=== PATIENT | female | born 1955 | race Caucasian/White ===

== ENCOUNTER → 2017-04-10 | Outpatient (CLI) | payer BC ==
--- NOTE | 2017-04-10 18:54 | Diagnostic Imaging Report ---
Bilateral screening mammogram 2D views with tomosynthesis. The current study was also evaluated with a Computer Aided Detection (CAD) system. INDICATION: Screening. No current complaints stated on the questionnaire. COMPARISON: 04/10/16. FINDINGS: The breasts are composed of scattered fibroglandular densities. Occasional punctate calcifications are seen. Allowing for technique and positional differences, no suspicious change is seen. IMPRESSION: No significant change. ACR BI-RADS Category 2: Benign findings. Result letter will be mailed to the patient. Note: At least 10% of breast cancer is not imaged by mammography. Dictated by: Dictated on workstation # [id number]
== END ==
LOC: RAD 07:44
PROVIDERS: ATTEND Family Medicine
DX: Z12.31 Encounter for screening mammogram for malignant neoplasm of breast (principal)
CPT/HCPCS: 77067

== ENCOUNTER → 2018-04-11 | Outpatient (CLI) | payer BC ==
--- NOTE | 2018-04-11 18:19 | Diagnostic Imaging Report ---
INDICATION: Screening. At this time there are no current complaints. EXAMINATION: Bilateral digital screening mammogram with CAD. 3D tomographic images were obtained and reviewed. The current study was also evaluated with a Computer Aided Detection (CAD) system. COMPARISON: This study was compared to the prior exams of 04/10/2017, 04/10/2016 and 12/09/13. FINDINGS: There are scattered fibroglandular densities in both breasts which could obscure a lesion. Overall, there does not appear to have been any significant change when compared to the prior exam. No primary or secondary sign of malignancy is noted. IMPRESSION: There is no radiographic evidence for malignancy. ACR BI-RADS Category 1: Negative. Result letter will be mailed to the patient. Note: At least 10% of breast cancer is not imaged by mammography. Dictated by: Dictated on workstation # [id number]
== END ==
LOC: RAD 07:19
PROVIDERS: ATTEND Family Medicine
DX: Z12.31 Encounter for screening mammogram for malignant neoplasm of breast (principal)
CPT/HCPCS: 77067

== ENCOUNTER 2018-08-19 13:59 | Outpatient (CLI) | payer BC ==
[~2018-08-19] VITALS: Ht 157.5 cm; Wt 91.6 kg
== END 2018-08-19 14:09 | disposition home or self-care (01) ==
LOC: PREOP 13:59
PROVIDERS: ATTEND Surgery
DX: Z01.818 Encounter for other preprocedural examination (principal)

== ENCOUNTER 2018-08-21 09:11 | Day surgery (SDC) | payer BC ==
[~2018-08-21] VITALS: Ht 157.5 cm; Wt 91.6 kg
[~2018-08-21 09:11] MED LIST: CALC600T12 PO; FERR160T5 PO; GLUC1CAP14 PO; MULT1TAB69 PO; OMEG100032 PO
--- OUTSIDE RECORDS SUMMARY | 2018-08-21 09:15 | XMS REPORT | Continuity of Care Document ---
Author Author [facility] Organization [facility] Address Unknown Phone Unavailable Allergies Active Description Code Type Severity Reaction Onset Reported/Identified Relationship to Patient Clinical Status Yes No Known Drug Allergies [id number] Drug Allergy Unknown N/A 08/19/2018 Medications There is no data. Problems Date Dx Coded Attending Type Code Diagnosis Diagnosed By 04/12/2016 DORIAN PATRICIA DO Ot Z12.31 ENCNTR SCREEN MAMMOGRAM FOR MALIGNANT NE 04/20/2016 DORIAN PATRICIA DO Ot Z12.31 ENCNTR SCREEN MAMMOGRAM FOR MALIGNANT NE 04/18/2017 DORIAN PATRICIA DO Ot Z12.31 ENCNTR SCREEN MAMMOGRAM FOR MALIGNANT NE 08/15/2018 KITA BHATTI MD Ot Z01.818 ENCOUNTER FOR OTHER PREPROCEDURAL EXAMIN 08/19/2018 KITA BHATTI MD Ot Z01.818 ENCOUNTER FOR OTHER PREPROCEDURAL EXAMIN Procedures There is no data. Results There is no data. Encounters ACCT No. Visit Date/Time Discharge Status Pt. Type Provider Facility Loc./Unit Complaint [id number] 08/19/2018 13:59:00 08/19/2018 14:09:00 DIS Outpatient KITA BHATTI MD [facility] PREOP COLONOSCOPY [id number] 04/11/2018 07:19:00 04/11/2018 23:59:59 CLS Outpatient DORIAN PATRICIA DO S [facility] RAD SCREENING [id number] 04/10/2017 07:44:00 04/10/2017 23:59:59 CLS Outpatient FABRICIO PATRICIA DOQUELINE S [facility] RAD SCREENING Z12.31 [id number] 04/10/2016 10:06:00 04/10/2016 23:59:59 CLS Outpatient FABRICIO PATRICIA DOQUELINE S [facility] RAD SCREENING [id number] 12/09/2013 08:45:00 12/09/2013 23:59:59 CLS Outpatient [id number] 12/04/2012 07:16:00 12/04/2012 23:59:59 CLS Outpatient [id number] 08/21/2018 09:30:00 PEN Preadmit KITA BHATTI MD [facility] ENDO SCREENING 03/14/19 06/16/2018 06:17:34 06/16/2018 23:59:59 CLS Outpatient Dorian Patricia
[2018-08-21] MEDS ORDERED: NS IV 500 ML 500 ML ONE ×2 (09:17→10:03)
--- NOTE | 2018-08-21 09:21 | Conscious Sedation/ASA ---
Conscious Sedation Pre-Proced Time 09:15 ASA Score 2 For ASA 3 and 4: Consider anesthesia and medical clearance. Also, for patients with a history of failed moderate sedation consider anesthesia. Airway Lungs Heart ASA score ASA 1: a normal healthy patient ASA 2: a patient with a mild systemic disease (mid diabetes, controlled hypertension, obesity ASA 3: a patient with a severe systemic disease that limits activity (angina , COPD, prior Myocardial infarction) ASA 4: a patient with an incapacitating disease that is a constant threat to life (CHF, renal failure) ASA 5: a moribund patient not expected to survive 24 hrs. (ruptured aneurysm) ASA 6: a declared brain- patient whose organs are being harvested. For emergent operations, add the letter E after the classification Mallampati Classification Grade 2 Sedation Plan Analgesia, Amnesia, Plan communicated to team members, Discussed options with patient/fam, Discussed risks with patient/fam The patient is an appropriate candidate to undergo the planned procedure, sedation, and anesthesia. The patient immediately re-assessed prior to indication. KITA BHATTI MD Aug 21, 2018 09:21
--- NOTE | 2018-08-21 09:22 | Progress Note-Pre Operative ---
Pre-Operative Progress Note H&P Reviewed The H&P was reviewed, patient examined and no changes noted. Date Seen by Provider: Aug 21, 2018 Time Seen by Provider: 09:15 Date H&P Reviewed: Aug 21, 2018 Time H&P Reviewed: 09:15 Pre-Operative Diagnosis: screening colonoscopy KITA BHATTI MD Aug 21, 2018 09:22
--- NOTE | 2018-08-21 09:25 | Discharge Inst-Surgical ---
D/C Lap Instructions-MAGY Follow Up 10yrs Activity as tolerated High Fiber Diet 25g or more per day Avoid Alcohol, Caffeine, Spicy [place]ancy [place] and Acid foods. Drink 64 fluid oz or more of fluids per day. Symptoms to Report: Fever over 101 degree F, Nausea/Vomiting If any problems/questions: Contact your physician or go to Emergency Room KITA BHATTI MD Aug 21, 2018 09:25
[2018-08-21] MEDS: NS IV 500 ML 500 ML IV PRN ×2 (09:30→10:05)
[2018-08-21] MEDS ORDERED: ONDANSETRON 4 MG/2 ML (SDV) Z0FRAN IV PRN (09:30)
[2018-08-21] MEDS ORDERED: ACETAMINOPHEN 325 MG TABLET PO PRN (09:30)
[2018-08-21] MEDS ORDERED: morphine INJ 10 MG/ML 1ML (SYR OR VIAL) IV PRN (09:30)
[2018-08-21] MEDS ORDERED: HYDROcodone/APAP 5 MG/325 MG (LORTAB) TAB PO PRN (09:30)
[2018-08-21 09:45] VITALS: BP 139/83
[2018-08-21] MEDS ORDERED: fentaNYL INJECTION 100 MCG/2 ML AMP IVP ONE (09:45)
[2018-08-21] MEDS ORDERED: LIDOCAINE JELLY 2% 6 ML SYRINGE MM PRN (09:45)
[2018-08-21] MEDS ORDERED: MIDAZOLAM 2 MG/2 ML (VERSED) VIAL IVP ONE (09:45)
[2018-08-21] MEDS ORDERED: MIDAZOLAM 2 MG/2 ML (VERSED) VIAL ONE ×5 (09:52→10:41)
[2018-08-21] MEDS ORDERED: LIDOCAINE JELLY 2% 6 ML SYRINGE ONE (09:53)
[2018-08-21] MEDS ORDERED: fentaNYL INJECTION 100 MCG/2 ML AMP ONE (09:53)
--- NOTE | 2018-08-21 11:15 | Progress Note-Post Operative ---
Post-Operative Progess Note Surgeon (s)/Traffic Observer (s) Surgeon KITA BHATTI MD Traffic Observer: none Pre-Operative Diagnosis screening colonoscopy Post-Operative Diagnosis mild chronic ext and int hemorroids, mild sigmoid diverticulosis. Procedure & Operative Findings Date of Procedure 08/21/18 Procedure Performed/Findings Colonoscopy. Anesthesia Type cs Estimated Blood Loss Estimated blood loss (mL): none Specimens/Packing Specimens Removed none KITA BHATTI MD Aug 21, 2018 11:15
[2018-08-21 11:20] VITALS: BP 131/84
[2018-08-21 11:50] VITALS: BP 133/72
[2018-08-21 12:05] VITALS: BP 133/72
--- NOTE | 2018-08-21 14:34 | OPERATIVE REPORT ---
DATE OF SERVICE: 08/21/2018 ATTENDING PRIMARY CARE PHYSICIAN: Dr. Patricia. PREOPERATIVE DIAGNOSIS: Screening colonoscopy. POSTOPERATIVE DIAGNOSES: Mild chronic stage II external and internal hemorrhoids, mild or early sigmoid diverticulosis. Remainder of the colon was normal. PROCEDURE: Colonoscopy. SURGEON: Kita Bhatti MD. ANESTHESIA: Conscious sedation. ESTIMATED BLOOD LOSS: Minimal. FINDINGS: Mild chronic stage II external and internal hemorrhoids, mild or very early sigmoid diverticulosis. The remainder of the colon was normal. There were no polyps or any neoplasms identified. DISPOSITION: The patient tolerated the procedure well. INDICATIONS: The patient is a 63-year-old female in need of a screening colonoscopy. She did have a colonoscopy 10 years ago and was found to have mild chronic external and internal hemorrhoids. However, the remainder of the rectum and colon were normal. She states, for the most part, she is doing well, does not report any major issues with diarrhea nor constipation as well as no red blood per rectum nor any dark tarry stools. She also does not report any family history of colon cancer. DESCRIPTION OF PROCEDURE: The patient was brought to the endoscopy suite and laid in the left lateral decubitus position. After adequate IV pain and sedative medications and conscious sedation anesthesia, a digital rectal examination was performed. Mild chronic stage II external and internal hemorrhoids were identified, which were not actively edematous nor inflamed and no bleeding. Normal sphincter tone was felt and there were no palpable masses. The endoscope was then intubated into the anus and the rectum gently insufflated. The endoscope was then advanced to the valves of [place] in the rectum with no polyps or any neoplasms identified. We then proceeded to the sigmoid colon where a very few and small diverticula identified. There were no signs of redness or erythema to indicate any diverticulitis. The endoscope was then advanced to the remainder of the descending, transverse and ascending colon to the cecum. These segments were normal. There were no polyps or any neoplasms identified throughout the colon or rectum. The patient tolerated the procedure well. We will recommend a high-fiber diet with at least 25 to 30 grams of fiber per day as well as significant amounts of water to promote soft stools on a daily basis. She does not need another colonoscopy for another 10 years. Job ID: [id number] DocumentID: [id number] Dictated Date: 08/21/2018 11:07:08 Curbstone Setter Date: 08/21/2018 14:33:55 Dictated By: KITA BHATTI MD
== END 2018-08-21 12:05 | disposition home or self-care (01) ==
LOC: ENDO 09:11
PROVIDERS: ATTEND Surgery
DX: Z12.11 Encounter for screening for malignant neoplasm of colon (principal); K57.30 Diverticulosis of large intestine without perforation or abscess without bleeding; K64.1 Second degree hemorrhoids

== ENCOUNTER → 2019-04-15 | Outpatient (CLI) | payer BC ==
--- NOTE | 2019-04-15 12:51 | Diagnostic Imaging Report ---
INDICATION: Routine screening. COMPARISON: Comparison is made with prior mammograms from 04/11/2018 and 04/10/2017. TECHNIQUE: 2-D and 3-D bilateral screening mammography was performed. The current study was also evaluated with a Computer Aided Detection (CAD) system. 3-D tomosynthesis was also performed and reviewed. FINDINGS: Scattered fibroglandular densities are identified bilaterally. The parenchymal pattern is stable. No mass or malignant-appearing microcalcifications are seen. The axillae are unremarkable. IMPRESSION: No mammographic features suspicious for malignancy are identified. ACR BI-RADS Category 1: Negative. Result letter will be mailed to the patient. Note: At least 10% of breast cancer is not imaged by mammography. Dictated by: Dictated on workstation # [id number]
== END ==
LOC: RAD 07:31
PROVIDERS: ATTEND Family Medicine
DX: Z12.31 Encounter for screening mammogram for malignant neoplasm of breast (principal)
CPT/HCPCS: 77067

== ENCOUNTER → 2020-04-19 | Outpatient (CLI) | payer BC ==
[~2020-04-19] MED LIST changes: -CALC600T12 PO; +CLC600T PO; +MULT-567 PO; -MULT1TAB69 PO
--- NOTE | 2020-04-19 11:21 | Diagnostic Imaging Report ---
EXAMINATION: Digital mammogram bilateral screening with CAD. INDICATION: Screening. COMPARISON: This study was compared to the prior exams of 04/15/2019, 04/11/2018, and 04/10/2017. PERSONAL HISTORY: At this time, there are no current complaints. FINDINGS: There are scattered fibroglandular densities in both breasts which could obscure a lesion. Overall, there does not appear to have been any significant change when compared to the prior exam. No primary or secondary sign of malignancy is noted. IMPRESSION: There is no radiographic evidence for malignancy. ACR BI-RADS Category 1: Negative. Result letter will be mailed to the patient. Note: At least 10% of breast cancer is not imaged by mammography. Dictated by: Dictated on workstation # [id number]
== END ==
LOC: RAD 07:45
PROVIDERS: ATTEND Nurse Practitioner Family
DX: Z12.31 Encounter for screening mammogram for malignant neoplasm of breast (principal)
CPT/HCPCS: 77063; 77067

== ENCOUNTER → 2020-05-13 | Outpatient (CLI) | payer BC | LOC: CARD 14:30 | PROVIDERS: ATTEND Family Medicine | DX: I08.1 Rheumatic disorders of both mitral and tricuspid valves (principal) | CPT/HCPCS: 93306 ==

== ENCOUNTER → 2020-06-28 | Outpatient (CLI) | payer BC ==
[~2020-06-28] VITALS: Ht 157 cm; Wt 93.0 kg
[~2020-06-28] MED LIST changes: +CATHETER FLUSH 10 ML SYR IV PRN; +REGADENOSON 0.4 MG/5 ML SYR (LEXISCAN) IV ONE
[2020-06-28 09:30] VITALS: BP 165/88
--- NOTE | 2020-06-28 14:36 | Cardiology Stress Test Report ---
Stress Test Report Date of Procedure/Referring: Date of Procedure: Jun 28, 2020 PCP Hiral Calvert MD Admitting Physician Deepa Patricia DO Baseline Blood Pressure: Blood Pressure Systolic: 165 Blood Pressure Diastolic: 88 Baseline Vitals Vital Signs Date Time Temp Pulse Resp B/P (MAP) Pulse Ox O2 Delivery O2 Flow Rate FiO2 06/28/20 09:30 64 165/88 (113) 98 Summary After explaining the procedure to the patient, she signed a consent and then brought to the stress nuclear laboratory. Patient received 0.4 mg Lexiscan for stress test, ECG, heart rate and blood pressure were monitored continuously. Resting and stress dose of radio tracer were injected, imaging was acquired and reviewed in short axis, horizontal long axis and vertical long axis views. TID: 0.91 SSS: 8 SDS: 7 EF: 61 Patient tolerated test well Breast attenuation with mild reversible ischemia involving the mid to apical anterior wall Normal LV size, EF 61% HIRAL CALVERT MD Jun 28, 2020 14:36
== END ==
LOC: CARD 08:00
PROVIDERS: ATTEND Internal Medicine Cardiovascular Disease
DX: R06.00 Dyspnea, unspecified (principal)
CPT/HCPCS: 78452; 93017; A9502

== ENCOUNTER → 2020-07-12 | Outpatient (CLI) | payer BC ==
[~2020-07-12] MED LIST changes: -CATHETER FLUSH 10 ML SYR IV PRN; -REGADENOSON 0.4 MG/5 ML SYR (LEXISCAN) IV ONE
== END ==
LOC: LABNPT 07:11
PROVIDERS: ATTEND Internal Medicine Cardiovascular Disease
DX: Z01.89 Encounter for other specified special examinations (principal); Z20.822 Contact with and (suspected) exposure to COVID-19
CPT/HCPCS: 87635

== ENCOUNTER 2020-07-14 10:30 | Day surgery (SDC) | payer BC ==
[~2020-07-14] VITALS: Ht 157 cm; Wt 93.0 kg
[2020-07-14] VITALS (16 sets, daily range): BP systolic 109–185; BP diastolic 61–100
[2020-07-14 07:25] LABS: BILIRUBIN,URINE NEGATIVE (NEGATIVE); CLARITY,URINE CLEAR; COLOR,URINE YELLOW; GLUCOSE, URINE (UA) NEGATIVE (NEGATIVE); KETONES,URINE NEGATIVE (NEGATIVE); LEUKOCYTE ESTERASE ,URINE NEGATIVE (NEGATIVE); NITRITE,URINE NEGATIVE (NEGATIVE); PROTEIN,URINE NEGATIVE (NEGATIVE)
[2020-07-14 07:27] LABS: HEMOGLOBIN 13.2 g/dL (11.5-16.0); MEAN PLATELET VOLUME 10.1 fL (9.0-12.2); WHITE BLOOD COUNT 9.4 10^3/uL (4.3-11.0)
[2020-07-14 07:32] LABS: BACTERIA,URINE TRACE /HPF
[2020-07-14 07:35] LABS: PROTHROMBIN TIME PATIENT 13.3 SEC (12.2-14.7)
[2020-07-14 07:44] LABS: ALANINE AMINOTRANSFERASE 27 U/L (0-55); ALBUMIN 4.1 GM/DL (3.2-4.5); ALKALINE PHOSPHATASE 89 U/L (40-136); BILIRUBIN,TOTAL 0.5 MG/DL (0.1-1.0); BUN/CREATININE RATIO 14; CARBON DIOXIDE 26 MMOL/L (21-32); CHLORIDE 105 MMOL/L (98-107); CHOLESTEROL 172 MG/DL (< 200); CREATININE SERUM 0.77 MG/DL (0.60-1.30); GFR ESTIMATED > 60; GLUCOSE 110 MG/DL (70-105); HDL CHOLESTEROL 47 MG/DL (40-60); SODIUM 140 MMOL/L (135-145); TOTAL PROTEIN 8.5 GM/DL (6.4-8.2); TRIGLYCERIDES 170 MG/DL (<150); VLDL CHOLESTEROL 34 MG/DL (5-40)
--- NOTE | 2020-07-14 07:50 | Diagnostic Imaging Report ---
Indication: Short of breath. Hypertension. Preprocedural evaluation Upright portable chest shows cardiomegaly with normal vascularity. The lungs are clear. There is no effusion or pneumothorax. There is no bony abnormality. IMPRESSION: Cardiomegaly with no failure. Dictated by: Dictated on workstation # [id number]
--- NOTE | 2020-07-14 09:45 | Cardiac Procedure Note-CS/ASA ---
Pre-Procedure Note Pre-Op Procedure Note H&P Reviewed The H&P was reviewed, patient examined and no changes noted. Date H&P Reviewed: Jul 14, 2020 Time H&P Reviewed: 08:00 Conscious Sedation Pre-Proced Time 08:00 ASA Score 3 For ASA 3 and 4: Consider anesthesia and medical clearance. Also, for patients with a history of failed moderate sedation consider anesthesia. Airway Lungs Heart ASA score ASA 1: a normal healthy patient ASA 2: a patient with a mild systemic disease (mid diabetes, controlled hypertension, obesity x ASA 3: a patient with a severe systemic disease that limits activity (angina, COPD, prior Myocardial infarction) ASA 4: a patient with an incapacitating disease that is a constant threat to life (CHF, renal failure) ASA 5: a moribund patient not expected to survive 24 hrs. (ruptured aneurysm) ASA 6: a declared brain- patient whose organs are being harvested. For emergent operations, add the letter E after the classification Mallampati Classification Grade 3 Sedation Plan Analgesia, Amnesia, Plan communicated to team members, Discussed options with patient/fam, Discussed risks with patient/fam The patient is an appropriate candidate to undergo the planned procedure, sedation, and anesthesia. The patient immediately re-assessed prior to indication. HIRAL JACK MD Jul 14, 2020 09:45
--- NOTE | 2020-07-14 09:45 | Cardiac Procedure Note-CS/ASA ---
Pre-Procedure Note Pre-Op Procedure Note H&P Reviewed The H&P was reviewed, patient examined and no changes noted. Date H&P Reviewed: Jul 14, 2020 Time H&P Reviewed: 09:00 Conscious Sedation Pre-Proced Time 09:00 ASA Score 3 For ASA 3 and 4: Consider anesthesia and medical clearance. Also, for patients with a history of failed moderate sedation consider anesthesia. Airway Lungs Heart ASA score ASA 1: a normal healthy patient ASA 2: a patient with a mild systemic disease (mid diabetes, controlled hypertension, obesity x ASA 3: a patient with a severe systemic disease that limits activity (angina, COPD, prior Myocardial infarction) ASA 4: a patient with an incapacitating disease that is a constant threat to life (CHF, renal failure) ASA 5: a moribund patient not expected to survive 24 hrs. (ruptured aneurysm) ASA 6: a declared brain- patient whose organs are being harvested. For emergent operations, add the letter E after the classification Mallampati Classification Grade 3 Sedation Plan Analgesia, Amnesia, Plan communicated to team members, Discussed options with patient/fam, Discussed risks with patient/fam The patient is an appropriate candidate to undergo the planned procedure, sedation, and anesthesia. The patient immediately re-assessed prior to indication. HIRAL JACK MD Jul 14, 2020 09:45
--- NOTE | 2020-07-14 09:47 | Discharge Inst-Post CATH ---
Discharge Inst-CATH/EP Problems Reviewed?: Yes Post Cardiac Cath/EP D/C Inst Follow Up/Plan Appointment with Dr. Calvert's office in 4 weeks <b>CARDIAC CATH/EP PROCEDURE DISCHARGE INSTRUCTIONS</b> ACTIVITY * Go Home directly and rest. * Limit activity of the leg (or wrist if it was used) for 7 days including aerobics, swimming, jogging, bicycling, etc. * Restrict stair-climbing for 7 days if possible, if not, climb up with your non-cath leg, then bring together on the same step. * Avoid lifting, pushing, pulling or excessive movement of the affected extremity for 7 days. * Customary sexual activity may be resumed after 2 days-use caution not to use a position that strains or causes pain to the affected extremity. * No driving for 24 hours. * NO SMOKING. * Avoid straining for bowel movements for 7 days. * Gentle walking on level ground is allowed. * Returning to work will depend on the type of procedure and the results. Your doctor will discuss this with you. CALL YOUR DOCTOR FOR ANY OF THE FOLLOWING: *If bleeding from the puncture site occurs- Apply gentle pressure to site with clean cloth and call your doctor or EMS. * If a knot or lump forms under the skin, increases in size, or causes pain. * If bruising appears to be worsening or moving further down your leg instead of disappearing. * Temperature above 101 F. CARE OF YOUR GROIN INCISION; * Bruising or purple discoloration of the skin near the puncture site is common. * You may shower only, no bathtub bathing for 5 days. Be careful to avoid slipping as your leg may feel stiff. * If a closure device was used on your femoral artery, please see the attached guide regarding care of the device and your leg. * Leave dressing on FOR 24 hours. CARE OF YOUR WRIST INCISION; * Bruising or purple discoloration of the skin near the puncture site is common. * You may shower. * DO NOT submerge wrist. * Leave dressing on FOR 24 hours. HIRAL CALVERT MD Jul 14, 2020 09:46
--- NOTE | 2020-07-14 09:51 | Cardiac Cath Report ---
Cardiac Cath Report Physician (s)/Personal Care Worker (s) Physician HIRAL JACK MD Pre-Procedure Diagnosis Pre-Procedure Diagnosis: severe mitral regurgitation Post-Procedure Note Procedure Start Date: Jul 14, 2020 Name of Procedure: Left heart catheterization Left ventriculogram Aortic arch angiogram Findings/Procedure Note PROCEDURE NOTE: 65-year-old lady with severe mitral regurgitation, pulmonary hypertension, underwent MERLIN earlier today and scheduled for cardiac catheterization prior to referring her for valve repair procedure. After explaining the procedure to the patient, all pros and cons were explained, all questions were answered. The patient signed the consent and then she was placed on the cardiac catheterization laboratory. Groin was prepped SL fashion local anesthesia was used. Sheath placed in the right radial artery, [place] catheter was used advanced to the left ventricular cavity and left ventriculogram was done then pulled back to the left main coronary system and angiogram was done turned to the right coronary system and angiogram was done then it was pulled back to the aortic arch and evaluate aortic arch angiogram prior to referring the patient for valvular surgery At the end of the procedure the sheath was removed. Vascular band was used FINDINGS: Hemodynamics LV 101/1, end-diastolic pressure of 1 Aorta 112/65 mean of 85 ANATOMY: Left Main is free of obstructive disease Left Anterior Descending is free of obstructive disease Left Circumflex is moderate in size, free of obstructive disease Right Coronory Artery is free of obstructive disease LV Gram was done showing normal left ventricular size, ejection fraction 50-60 percent, +3 mitral regurgitation Aorta evaluation done with aortic arch angiogram showing normal aortic arch, no dissection or aneurysm, normal origin of the innominate artery, left carotid artery and left subclavian artery CONCLUSION: 1. Normal coronary system 2. Normal left ventricular size and systolic function, EF 50-60 percent 3. Normal aortic arch and great vessels of the neck 4. +3 mitral regurgitation, patient had a MERLIN showing severe mitral regurgitation with eccentric jet and flow reversal in the pulmonic veins DISCUSSION AND RECOMMENDATION: Patient will be referred for evaluation for mitral valve repair Anesthesia Type: Conscious Sedation Estimated blood loss (mL): 10 ml Contrast Amount: 48 ml Total Radiation Dose: 405 mGy Post-Procedure Diagnosis Post-operative diagnosis: Severe mitral regurgitation Hypertension Pulmonary hypertension Shortness of breath HIRAL JACK MD Jul 14, 2020 09:51
[~2020-07-14 10:30] MED LIST changes: +HEParin (CATH LAB) 2,000 ML IV ONE; +HEParin 1000 UNIT/ML (10ML VIAL) FOR BOLUS ONE; +LIDOCAINE 1% INJ 20 ML 20 ML VIAL ONE; +LIDOCAINE 2% VISCOUS 15 ML UDC ONE; +MIDAZOLAM 5 MG/5 ML (VERSED) VIAL ONE; +NITRO DRIP 25000 MCG/D5W 250 ML IV ONE; +NS IV 1000 ML 1,000 ML IV SCH; +NS IV 1000 ML 1,000 ML ONE; +VERAPAMIL 5 MG/2 ML (CALAN) VIAL IV ONE; +fentaNYL INJECTION 100 MCG/2 ML AMP ONE
== END 2020-07-14 13:40 | disposition home or self-care (01) ==
LOC: CATH 10:30
PROVIDERS: ATTEND Internal Medicine Cardiovascular Disease
DX: I34.0 Nonrheumatic mitral (valve) insufficiency (principal); I10 Essential (primary) hypertension; I27.20 Pulmonary hypertension, unspecified; R06.02 Shortness of breath; Z79.899 Other long term (current) drug therapy; Z87.891 Personal history of nicotine dependence; Z83.3 Family history of diabetes mellitus
CPT/HCPCS: 36221; 71045; 80053; 80061; 81000; 85027; 85610; 85730; 87081; 93005; 93312; 93458; C1894; 36415

== ENCOUNTER → 2021-01-06 | Outpatient (CLI) | payer BC ==
[~2021-01-06] MED LIST changes: +CALC600T91 PO; +CEPH500T PO; -CLC600T PO; -HEParin (CATH LAB) 2,000 ML IV ONE; -HEParin 1000 UNIT/ML (10ML VIAL) FOR BOLUS ONE; -LIDOCAINE 1% INJ 20 ML 20 ML VIAL ONE; -LIDOCAINE 2% VISCOUS 15 ML UDC ONE; -MIDAZOLAM 5 MG/5 ML (VERSED) VIAL ONE; -NITRO DRIP 25000 MCG/D5W 250 ML IV ONE; -NS IV 1000 ML 1,000 ML IV SCH; -NS IV 1000 ML 1,000 ML ONE; -VERAPAMIL 5 MG/2 ML (CALAN) VIAL IV ONE; -fentaNYL INJECTION 100 MCG/2 ML AMP ONE
== END ==
LOC: CARD 09:00
PROVIDERS: ATTEND Internal Medicine Cardiovascular Disease
DX: I08.1 Rheumatic disorders of both mitral and tricuspid valves (principal); I10 Essential (primary) hypertension; I25.10 Atherosclerotic heart disease of native coronary artery without angina pectoris
CPT/HCPCS: 93306

== ENCOUNTER 2021-01-13 10:47 | Emergency (ER) | payer BC ==
[~2021-01-13] VITALS: Ht 157 cm; Wt 87.0 kg
[~2021-01-13 10:47] MED LIST changes: -CEPH500T PO
[2021-01-13] MEDS ORDERED: OXYMETAZOLINE (AFRIN) 0.05% NA 30 ML BTL ONE (11:04)
[2021-01-13] MEDS ORDERED: LIDOCAINE/EPI 1%-1:100,000 (XYLOCAINE) 20ML ONE (12:05)
[2021-01-13] MEDS ORDERED: TRANEXAMIC ACID 100 MG/ML 10 ML INJECTION IV ONE (12:15)
[2021-01-13] MEDS ORDERED: LIDOCAINE/EPI 1%-1:100,000 (XYLOCAINE) 10 ML INJ ONE (12:15)
[2021-01-13] MEDS ORDERED: CEPH500T PO (12:43)
--- NOTE | 2021-01-13 12:43 | ED EENT ---
History of Present Illness General Chief Complaint: Nasal Problems Stated Complaint: NOSEBLEED Nursing Triage Note: pt presents to ed via pov fom work with complaints of nose bleed to r nare starting at aprox 1000 today while she was using the restroom. Source: patient Exam Limitations: no limitations History of Present Illness Date Seen by Provider: Jan 13, 2021 Time Seen by Provider: 11:00 Initial Comments Patient is a 65-year-old female anticoagulated on Eliquis who presents to the emergency department today with a chief complaint of right-sided nosebleed. Patient states her nose started bleeding spontaneously approximately an hour prior to arrival. She denies any trauma. No recent illnesses such as fevers, sneezing, sore throat runny nose or congestion. No Covid concerns. Patient has a history of coronary artery disease status post bypass. She was started on Eliquis as a result of having A. fib after her bypass surgery. Patient is followed by Dr. Calvert and her primary care doctor is Dr. Gilbert. Patient has been trying direct pressure without any relief of her nosebleed. No nausea. No chest pain no shortness of breath. All other review of systems reviewed and negative except as stated. Timing/Duration: abrupt Severity: moderate Location: nose (Right nare) Prearrival Treatment: squeezing nostrils Associated Symptoms: denies symptoms Allergies and Home Medications Allergies Coded Allergies: No Known Drug Allergies (Unverified , 08/19/18) Home Medications Calcium Carbonate 600 Mg Tablet, 600 MG PO DAILY, (Reported) Ferrous Sulfate, Dried 160 Mg Tablet.er, 160 MG PO DAILY, (Reported) Gluc HCl/Csa/Mohan Hy/Hyalur AC 1 Each Capsule, 1 EACH PO DAILY, (Reported) Multivitamin 1 Each Tablet, 1 EACH PO DAILY, (Reported) [place]-3/Dha/Epa/Fish Oil 1,000 Mg Capsule, 1,000 MG PO DAILY, (Reported) Patient Home Medication List Home Medication List Reviewed: Yes Review of Systems Review of Systems Constitutional: see HPI Eyes: No Symptoms Reported Ears: No Symptoms Reported Nose: clots, epistaxis Mouth: no symptoms reported Throat: no symptoms reported Respiratory: no symptoms reported Cardiovascular: no symptoms reported Gastrointestinal: no symptoms reported Musculoskeletal: no symptoms reported All Other Systems Reviewed Negative Unless Noted: Yes Past Lgyllsj-Agxglk-Ulhlsx Hx Patient Social History Tobacco Use?: No Smokeless Tobacco Frequency: Never a User Substance use?: No Alcohol Use?: No Pt feels they are or have been: No Immunizations Up To Date Tetanus Booster (TDap): Unknown First/Initial COVID19 Vaccinat: september 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 Seasonal Allergies Seasonal Allergies: No Past Medical History Surgery/Hospitalization HX: sx: mitral valve repair, gallbladder Surgeries: Yes Section, Gallbladder, Tubal Ligation Respiratory: No Currently Using CPAP: No Currently Using BIPAP: No Cardiac: No Neurological: 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 0.0oz. 91.418934fq; 35.00 BMI Method: General Appearance: WD/WN, no apparent distress Eyes: bilateral eye normal inspection, bilateral eye PERRL, bilateral eye EOMI Nose: active bleeding, other (Patient has significant bleeding noted from the right nare. No anterior source of bleeding is identifiable after having the patient blow her nose and clear out the right nostril. Patient is noted to have copious amounts of blood in the posterior pharynx. Initially treated with Afrin squirts in both nares. Direct pressure with a nasal clamp. After approximately 30 minutes to 45 minutes a combination of Afrin, TXA and lidocaine with epi was used to soak a rapid Rhino 7.5 cm pack. This was placed successfully without complication in the patient's right nare. She was monitored about 30 minutes after the placement of this pack and is noted to have cessation of bleeding.) Mouth/Throat: other (Posterior pharyngeal blood) Neck: full range of motion, supple Cardiovascular: regular rate, rhythm Respiratory: lungs clear, normal breath sounds, no respiratory distress, no accessory muscle use Gastrointestinal: non tender, soft Neurologic/Psychiatric: alert, normal mood/affect, oriented x 3 Skin: normal color, warm/dry Progress/Results/Core Measures Results/Orders My Orders Orders - MARTY LOPEZ MD Oxymetazoline 0.05% Nasal [place] (Afrin 0. (01/13/21 11:04) Tranexamic Acid Injection (Cyklokapron I (01/13/21 12:15) Lidocaine/Epi 1% 1:100,000 (Xylocaine 1% (01/13/21 12:15) Lidocaine/Epi 1% 1:100,000 (Xylocaine /E (01/13/21 12:05) Medications Given in ED Current Medications Medications Dose Ordered Sig/Martita Route Start Time Stop Time Status Last Admin Dose Admin Lidocaine/ Epinephrine 10 ml ONCE ONCE INJ 01/13/21 12:15 01/13/21 12:16 DC 01/13/21 12:07 10 ML Oxymetazoline HCl 30 ml STK-MED ONCE .ROUTE 01/13/21 11:04 01/13/21 11:09 DC 01/13/21 12:08 30 ML Tranexamic Acid 10 MG/KG ONCE ONCE IV 01/13/21 12:15 01/13/21 12:16 DC 01/13/21 12:07 10 MG Vital Signs/I&O 01/13/21 10:56 Temp 36.8 Pulse 101 Resp 18 B/P (MAP) 167/102 (123) Pulse Ox 96 Blood Pressure Mean: 123 Progress Progress Note : Time: 12:40 Progress Note After placement of the pack the patient is noted to have control of the bleeding. She will be sent home with a nasal pack in place and advised to return on Sunday to have it removed. She will be placed on Keflex for the next 5 days. If she should start to have bleeding again or the pack becomes dislodged she is instructed to come back to the emergency room. All questions are sought and answered. Patient is stable for discharge. Departure Impression Primary Impression: Acute posterior epistaxis Disposition: HOME, SELF-CARE Condition: Stable Departure-Patient Inst. Decision time for Depature: 12:41 Referrals: DORIAN GILBERT DO (PCP/Family) Primary Care Physician Patient Instructions: Nosebleeds (DC) Add. Discharge Instructions: Please keep the pack in place until you come back on Sunday to have it removed by one of us here in the emergency department. Take the Keflex 3 times daily for the next 5 days. Return to the emergency room for reevaluation if you notice any bleeding around the nasal pack. Come back if you have any other new emergent concerning complaints. Scripts Cephalexin (Cephalexin) 500 Mg Tablet 500 MG PO TID, #15 TAB Prov: MARTY LOPEZ MD 01/13/21 Work/School Note: Work Release Form Date Seen in the Emergency Department: Jan 13, 2021 Return to Work: Jan 14, 2021 MARTY LOPEZ MD Jan 13, 2021 12:43
[2021-01-13 12:53] VITALS: BP 151/100
== END 2021-01-13 12:53 | disposition home or self-care (01) ==
LOC: EDUNIT# 10:47 → ER 10:48
DX: R04.0 Epistaxis (principal); I25.10 Atherosclerotic heart disease of native coronary artery without angina pectoris; I48.91 Unspecified atrial fibrillation; Z95.1 Presence of aortocoronary bypass graft; Z79.01 Long term (current) use of anticoagulants
CPT/HCPCS: 30901; 30905

== ENCOUNTER 2021-01-15 09:59 | Emergency (ER) | payer BC ==
[~2021-01-15] VITALS: Ht 157 cm; Wt 87.0 kg
[~2021-01-15 09:59] MED LIST changes: +CEPH500T PO
--- NOTE | 2021-01-15 11:10 | ED EENT ---
History of Present Illness General Chief Complaint: Nasal Problems Stated Complaint: REEVAL Nursing Triage Note: PT TO ED FOR NASAL PACKING REMOVAL. PT REPORTS HAD PACKING PLACED X3 DAYS AGO ET WAS TOLD TO RETURN FOR REMOVAL. PT DENIES ANY ACTIVE BLEEDING AT THIS TIME. History of Present Illness Date Seen by Provider: Jan 15, 2021 Time Seen by Provider: 11:07 Initial Comments To ER to have her nasal pack removed. Patient was seen by me a couple of days ago with posterior epistaxis. She is chronically anticoagulated. She has had no problems with bleeding since the packing was placed. No fevers or chills. Patient has been on antibiotics. Allergies and Home Medications Allergies Coded Allergies: No Known Drug Allergies (Unverified , 08/19/18) Home Medications Calcium Carbonate 600 Mg Tablet, 600 MG PO DAILY, (Reported) Cephalexin 500 Mg Tablet, 500 MG PO TID Prescribed by: MARTY LOPEZ on 01/13/21 1243 Ferrous Sulfate, Dried 160 Mg Tablet.er, 160 MG PO DAILY, (Reported) Gluc HCl/Csa/Mohan Hy/Hyalur AC 1 Each Capsule, 1 EACH PO DAILY, (Reported) Multivitamin 1 Each Tablet, 1 EACH PO DAILY, (Reported) [place]-3/Dha/Epa/Fish Oil 1,000 Mg Capsule, 1,000 MG PO DAILY, (Reported) Patient Home Medication List Home Medication List Reviewed: Yes Review of Systems Review of Systems Constitutional: see HPI Eyes: No Symptoms Reported Ears: No Symptoms Reported Nose: congestion, other (Little bit of runny nose) Throat: no symptoms reported Respiratory: no symptoms reported Cardiovascular: no symptoms reported Gastrointestinal: no symptoms reported All Other Systems Reviewed Negative Unless Noted: Yes Past Wicvbmc-Wsodwz-Ooctmk Hx Patient Social History Tobacco Use?: No Smoking Status: Never a Smoker Use of E-Cig and/or Vaping dev: No Substance use?: No Alcohol Use?: No Immunizations Up To Date Tetanus Booster (TDap): Unknown Seasonal Allergies Seasonal Allergies: No Past Medical History Surgery/Hospitalization HX: sx: mitral valve repair, gallbladder Surgeries: Yes Section, Gallbladder, Tubal Ligation Respiratory: No Currently Using CPAP: No Currently Using BIPAP: No Cardiac: No 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 0.0oz. 91.255205ec; 35.00 BMI Method: General Appearance: WD/WN, no apparent distress Eyes: bilateral eye normal inspection, bilateral eye PERRL Nose: other (Nasal pack in place right nare) Mouth/Throat: normal mouth inspection Cardiovascular: regular rate, rhythm Respiratory: no respiratory distress, no accessory muscle use Neurologic/Psychiatric: alert, normal mood/affect, oriented x 3 Skin: normal color, warm/dry Progress/Results/Core Measures Results/Orders My Orders Orders - MARTY LOPEZ MD Oxymetazoline 0.05% Nasal [place] (Afrin 0. (01/15/21 21:00) Oxymetazoline 0.05% Nasal [place] (Afrin 0. (01/15/21 12:51) Medications Given in ED Current Medications Medications Dose Ordered Sig/Martita Route Start Time Stop Time Status Last Admin Dose Admin Oxymetazoline HCl 30 ml STK-MED ONCE .ROUTE 01/15/21 12:51 01/15/21 12:53 DC 01/15/21 12:57 30 ML Vital Signs/I&O 01/15/21 10:31 Temp 37.0 Pulse 81 Resp 0 B/P (MAP) 155/87 (109) Pulse Ox 96 O2 Delivery Room Air Blood Pressure Mean: 109 Progress Progress Note : Time: 11:08 Progress Note Nasal pack irrigated with some saline. Air was removed. Nasal packing was removed without complication no return of bleeding. Patient is monitored in the emergency department for about 15 minutes. During the course of monitoring the patient developed a little bit of bleeding that looks like it may have been coming anteriorly. This may have been due to disruption when pulling the packing. A couple of squirts of Afrin were used to the right nare. Patient had cessation of bleeding while in the department. She is counseled on return of bleeding and if it should recur she needs to come back to the emergency room for repacking. I have given her contact information for Dr. Fry. I have recommended that she call his office on Sunday for a follow- up appointment. She is comfortable with discharge. All questions have been sought and answered. Patient is stable for discharge. Departure Impression Primary Impression: Encounter for removal of nasal pack Disposition: HOME, SELF-CARE Condition: Stable Departure-Patient Inst. Decision time for Depature: 11:09 Referrals: GUERO FRY MD, JACQUELINE S DO (PCP/Family) Primary Care Physician Patient Instructions: Nosebleeds (DC) Add. Discharge Instructions: Follow-up with your primary care physician. Return to the emergency room if you have any return of bleeding or any other emergent concerning symptoms. MARTY LOPEZ MD Jan 15, 2021 11:09
[2021-01-15] MEDS ORDERED: OXYMETAZOLINE (AFRIN) 0.05% NA 30 ML BTL ONE (12:51)
[2021-01-15 13:30] VITALS: BP 0/0
[2021-01-15] MEDS ORDERED: OXYMETAZOLINE (AFRIN) 0.05% NA 30 ML BTL SCH (21:00)
== END 2021-01-15 13:30 | disposition home or self-care (01) ==
LOC: EDUNIT# 09:59 → ER 10:01
DX: Z48.00 Encounter for change or removal of nonsurgical wound dressing (principal)
CPT/HCPCS: 99282

== ENCOUNTER 2021-01-26 04:22 | Emergency (ER) | payer BC ==
[2021-01-26] MEDS ORDERED: PHENYLEPHRINE 0.25% NASAL SPR (NEO-SYNEPHRINE) 15 ML NS ONE (04:51)
[2021-01-26] MEDS ORDERED: PHENYLEPHRINE 0.25% NASAL SPR (NEO-SYNEPHRINE) 15 ML NS STA (04:51)
--- NOTE | 2021-01-26 05:01 | ED EENT ---
History of Present Illness General Chief Complaint: Nasal Problems Stated Complaint: NOSE BLEED,PT ON BLOOD THINNERS Source: patient Exam Limitations: no limitations History of Present Illness Date Seen by Provider: Jan 26, 2021 Time Seen by Provider: 04:30 Initial Comments Here with report of nosebleed that started at about 3 AM. Arrives with emesis basin that is approximately a quarter full of blood as she has been leaning forward over that but has not been applying pressure. Has blood clots noted at the right nare. She states the bleeding has mostly been from the right nare. She had episode of this a week ago or so. She is on Eliquis and aspirin. Has had vomiting with this due to gagging and feels like something is hanging in her throat. Timing/Duration: abrupt Severity: moderate Location: nose Prearrival Treatment: no prearrival treatment Associated Symptoms: No facial pain/swelling, No fever; nasal congestion/drainage (Epistaxis); No sore throat Allergies and Home Medications Allergies Coded Allergies: No Known Drug Allergies (Unverified , 08/19/18) Home Medications Calcium Carbonate 600 Mg Tablet, 600 MG PO DAILY, (Reported) Cephalexin 500 Mg Tablet, 500 MG PO TID Prescribed by: MARTY LOPEZ on 01/13/21 1243 Ferrous Sulfate, Dried 160 Mg Tablet.er, 160 MG PO DAILY, (Reported) Gluc HCl/Csa/Mohan Hy/Hyalur AC 1 Each Capsule, 1 EACH PO DAILY, (Reported) Multivitamin 1 Each Tablet, 1 EACH PO DAILY, (Reported) [place]-3/Dha/Epa/Fish Oil 1,000 Mg Capsule, 1,000 MG PO DAILY, (Reported) Patient Home Medication List Home Medication List Reviewed: Yes Review of Systems Review of Systems Constitutional: see HPI; No chills, No fever Eyes: No Symptoms Reported Ears: No Symptoms Reported Nose: clots, epistaxis Mouth: no symptoms reported Throat: see HPI; denies pain, denies swelling Respiratory: No cough, No short of breath All Other Systems Reviewed Negative Unless Noted: Yes Past Zlcyvbv-Snvdxi-Vqeduw Hx Patient Social History Tobacco Use?: No Substance use?: No Alcohol Use?: No Immunizations Up To Date Tetanus Booster (TDap): Unknown Seasonal Allergies Seasonal Allergies: No Past Medical History Surgery/Hospitalization HX: sx: mitral valve repair, gallbladder Surgeries: Yes Cardiac, Section, Gallbladder, Tubal Ligation Respiratory: No Currently Using CPAP: No Currently Using BIPAP: No Cardiac: Yes Coronary Artery Disease 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 0.0oz. 91.027136sq; 35.00 BMI Method: General Appearance: WD/WN, mild distress Eyes: bilateral eye normal inspection, bilateral eye PERRL, bilateral eye EOMI Nose: active bleeding (Mostly from the right but appears to have some minimal drainage from the left.), other (Blood clot removed from right nare that was quite long and hanging into the back of the throat. Left nare evacuated with suction and shows slight ooze.) Mouth/Throat: other (Trace blood ooze posterior pharynx after insertion of rapid Rhino 7.5 cm to the right nare.) Neck: full range of motion, supple Cardiovascular: regular rate, rhythm, no murmur Respiratory: lungs clear, normal breath sounds Gastrointestinal: non tender, soft Neurologic/Psychiatric: alert, oriented x 3 Skin: normal color, warm/dry Progress/Results/Core Measures Results/Orders Lab Results Laboratory Tests Test 01/26/21 05:25 Range/Units White Blood Count 9.8 4.3-11.0 10^3/uL Red Blood Count 3.29 L 3.80-5.11 10^6/uL Hemoglobin 9.8 L 11.5-16.0 g/dL Hematocrit 30 L 35-52 % Mean Corpuscular Volume 92 80-99 fL Mean Corpuscular Hemoglobin 30 25-34 pg Mean Corpuscular Hemoglobin Concent 33 32-36 g/dL Red Cell Distribution Width 14.7 H 10.0-14.5 % Platelet Count 288 130-400 10^3/uL Mean Platelet Volume 9.5 9.0-12.2 fL Immature Granulocyte % (Auto) 0 % Neutrophils (%) (Auto) 73 42-75 % Lymphocytes (%) (Auto) 18 12-44 % Monocytes (%) (Auto) 6 0-12 % Eosinophils (%) (Auto) 2 0-10 % Basophils (%) (Auto) 0 0-10 % Neutrophils # (Auto) 7.2 1.8-7.8 10^3/uL Lymphocytes # (Auto) 1.8 1.0-4.0 10^3/uL Monocytes # (Auto) 0.6 0.0-1.0 10^3/uL Eosinophils # (Auto) 0.2 0.0-0.3 10^3/uL Basophils # (Auto) 0.0 0.0-0.1 10^3/uL Immature Granulocyte # (Auto) 0.0 0.0-0.1 10^3/uL Sodium Level 143 135-145 MMOL/L Potassium Level 3.7 3.6-5.0 MMOL/L Chloride Level 109 H 98-107 MMOL/L Carbon Dioxide Level 22 21-32 MMOL/L Anion Gap 12 5-14 MMOL/L Blood Urea Nitrogen 14 7-18 MG/DL Creatinine 0.87 0.60-1.30 MG/DL Estimat Glomerular Filtration Rate 66 BUN/Creatinine Ratio 16 Glucose Level 134 H 70-105 MG/DL Calcium Level 8.4 L 8.5-10.1 MG/DL Corrected Calcium 9.0 8.5-10.1 MG/DL Total Bilirubin 0.4 0.1-1.0 MG/DL Aspartate Amino Transf (AST/SGOT) 70 H 5-34 U/L Alanine Aminotransferase (ALT/SGPT) 68 H 0-55 U/L Alkaline Phosphatase 77 40-136 U/L Total Protein 7.4 6.4-8.2 GM/DL Albumin 3.3 3.2-4.5 GM/DL My Orders Orders - JODIE SULTANA MD Phenylephrine 0.25% Nasal Spra (Neptali-Syne (01/26/21 04:51) Cbc With Automated Diff (01/26/21 04:51) Comprehensive Metabolic Panel (01/26/21 04:51) Phenylephrine 0.25% Nasal Spra (Neptali-Syne (01/26/21 04:51) Vital Signs/I&O 01/26/21 04:29 Temp 35.5 Pulse 86 Resp 16 B/P (MAP) 183/109 (133) O2 Delivery Room Air Progress Progress Note : Progress Note Seen and evaluated shortly after arrival. Placed on ED cot and large blood clot removed from right nare. Direct pressure applied manually to the nose. Due to persistence of bleeding and this is continuing despite direct pressure, there is concerns for posterior bleed. Rapid Rhino 7.5 cm placed to the right nare with fairly good success controlling bleeding. There is still slight ooze from the left nare. We will do Neptali-Synephrine sprays to the left nare and apply direct pressure. We will check CBC chemistries to evaluate current blood count. Monitor patient. 0553: Patient overall doing much better. We did keep direct pressure for 20 to 30 minutes and bleeding to the left nare has stopped. She will keep the rapid Rhino in place for 2 days and return here to remove. In the interim she is going to try to get appointment with ear nose and throat surgeon and she will call today for that. She can have that removed in their office as well if she gets in in time. This was discussed with the patient. Discharged home with return precautions. Patient verbalized understanding of instructions and agreement with plan. Departure Impression Primary Impression: Acute posterior epistaxis Disposition: HOME, SELF-CARE Condition: Improved Departure-Patient Inst. Decision time for Depature: 05:54 Referrals: GUERO FRY MD, JACQUELINE S DO (PCP/Family) Primary Care Physician Patient Instructions: Nosebleeds (DC) Add. Discharge Instructions: All discharge instructions reviewed with patient and/or family. Voiced understanding. You will need to return turn in 2 days to have packing removed. Follow-up with Dr. Fry or ENT of your choice. Call his office today for appointment for evaluation. Follow-up with your doctor as needed as well. Return for bleeding, weakness, vomiting, breathing problems or other concerns as needed. Work/School Note: Work Release Form Date Seen in the Emergency Department: Jan 26, 2021 Return to Work: Jan 27, 2021 Restrictions: No Restrictions Copy Copies To 1: DORIAN GILBERT TIMOTHY D MD Jan 26, 2021 05:01
[2021-01-26 05:32] LABS: BASOPHILS % (AUTO) 0 % (0-10); EOSINOPHILS # (AUTO) 0.2 10^3/uL (0.0-0.3); EOSINOPHILS % (AUTO) 2 % (0-10); HEMATOCRIT 30 % (35-52); HEMOGLOBIN 9.8 g/dL (11.5-16.0); LYMPHOCYTES # (AUTO) 1.8 10^3/uL (1.0-4.0); LYMPHOCYTES % (AUTO) 18 % (12-44); MEAN CORPUSCULAR HEMOGLOBIN 30 pg (25-34); MEAN CORPUSCULAR HGB CONC 33 g/dL (32-36); MEAN CORPUSCULAR VOLUME 92 fL (80-99); MEAN PLATELET VOLUME 9.5 fL (9.0-12.2); MONOCYTES # (AUTO) 0.6 10^3/uL (0.0-1.0); MONOCYTES % (AUTO) 6 % (0-12); NEUTROPHILS # (AUTO) 7.2 10^3/uL (1.8-7.8); NEUTROPHILS % (AUTO) 73 % (42-75); PLATELET COUNT 288 10^3/uL (130-400); WHITE BLOOD COUNT 9.8 10^3/uL (4.3-11.0)
[2021-01-26 05:39] LABS: ALBUMIN 3.3 GM/DL (3.2-4.5); POTASSIUM 3.7 MMOL/L (3.6-5.0)
[2021-01-26 05:40] LABS: CALCIUM 8.4 MG/DL (8.5-10.1)
[2021-01-26 05:42] LABS: TOTAL PROTEIN 7.4 GM/DL (6.4-8.2)
[2021-01-26 05:43] LABS: BILIRUBIN,TOTAL 0.4 MG/DL (0.1-1.0)
[2021-01-26 05:45] LABS: CREATININE SERUM 0.87 MG/DL (0.60-1.30)
[2021-01-26 06:00] VITALS: BP 126/87
[2021-01-26] MEDS ORDERED: LACTATED RINGERS 1,000 ML IV ONE (06:00)
[2021-01-26] MEDS ORDERED: AMOX500C2 PO (06:02)
== END 2021-01-26 06:10 | disposition home or self-care (01) ==
LOC: EDUNIT# 04:22 → ER 04:25
DX: R04.0 Epistaxis (principal); I25.10 Atherosclerotic heart disease of native coronary artery without angina pectoris; Z79.01 Long term (current) use of anticoagulants; Z79.82 Long term (current) use of aspirin
CPT/HCPCS: 36415; 80053; 85025

== ENCOUNTER 2021-01-28 12:57 | Day surgery (SDC) | payer BC ==
[2021-01-28] VITALS (9 sets, daily range): BP systolic 123–172; BP diastolic 77–96
[~2021-01-28] VITALS: Ht 157.5 cm; Wt 85.4 kg
[~2021-01-28 12:57] MED LIST changes: +AMOX500C2 PO
[2021-01-28] MEDS ORDERED: PHENYLEPHRINE 0.5% NASAL SPR (NEO-SYNEPHRINE) REG ONE (13:06)
[2021-01-28] MEDS ORDERED: LIDOCAINE/EPI 1%-1:100,000 (XYLOCAINE) 20ML ONE (13:06)
[2021-01-28] MEDS ORDERED: COCAINE HCL 4% 2 ML SYR ONE (13:06)
[2021-01-28] MEDS ORDERED: MUPIROCIN 2% OINT 22 GM (BACTROBAN) TUBE ONE (13:06)
[2021-01-28] MEDS ORDERED: MIDAZOLAM 2 MG/2 ML (VERSED) VIAL ONE (13:22)
[2021-01-28] MEDS ORDERED: fentaNYL INJ 100 MCG/2 ML AMP ONE (13:22)
[2021-01-28] MEDS: LACTATED RINGERS 1,000 ML IV PRN ×2 (13:53→14:40)
[2021-01-28 14:00] LABS: BASOPHILS % (AUTO) 0 % (0-10); EOSINOPHILS # (AUTO) 0.1 10^3/uL (0.0-0.3); EOSINOPHILS % (AUTO) 1 % (0-10); HEMATOCRIT 28 % (35-52); HEMOGLOBIN 9.5 g/dL (11.5-16.0); LYMPHOCYTES # (AUTO) 1.8 10^3/uL (1.0-4.0); LYMPHOCYTES % (AUTO) 17 % (12-44); MEAN CORPUSCULAR HEMOGLOBIN 30 pg (25-34); MEAN CORPUSCULAR HGB CONC 34 g/dL (32-36); MEAN CORPUSCULAR VOLUME 90 fL (80-99); MEAN PLATELET VOLUME 10.2 fL (9.0-12.2); MONOCYTES # (AUTO) 0.9 10^3/uL (0.0-1.0); MONOCYTES % (AUTO) 9 % (0-12); NEUTROPHILS # (AUTO) 7.6 10^3/uL (1.8-7.8); NEUTROPHILS % (AUTO) 72 % (42-75); PLATELET COUNT 302 10^3/uL (130-400); WHITE BLOOD COUNT 10.6 10^3/uL (4.3-11.0)
--- NOTE | 2021-01-28 14:08 | Progress Note-Pre Operative ---
Pre-Operative Progress Note H&P Reviewed The H&P was reviewed, patient examined and no changes noted. Date Seen by Provider: Jan 28, 2021 Time Seen by Provider: 13:15 Date H&P Reviewed: Jan 28, 2021 Time H&P Reviewed: 13:15 Pre-Operative Diagnosis: Right Posterior Epistaxis GUERO NIELSEN MD Jan 28, 2021 14:08
[2021-01-28 14:11] LABS: CALCIUM 9.2 MG/DL (8.5-10.1); CREATININE SERUM 0.87 MG/DL (0.60-1.30); POTASSIUM 3.9 MMOL/L (3.6-5.0)
[2021-01-28] MEDS ORDERED: proPOfol 200 MG/20 ML (DIPRIVAN) VIAL IV ONE (14:18)
[2021-01-28] MEDS ORDERED: ROCURONIUM 10 MG/ML 5 ML SYRINGE IV ONE (14:19)
[2021-01-28] MEDS ORDERED: SUCCINYLCHOLINE INJ 100 MG/5 ML SYR/VIAL ONE (14:19)
[2021-01-28] MEDS ORDERED: LIDOCAINE PF 2% 5 ML (XYLOCAINE) VIAL ONE (14:19)
[2021-01-28] MEDS ORDERED: ONDANSETRON 4 MG/2 ML (SDV) Z0FRAN ONE (14:19)
[2021-01-28] MEDS ORDERED: DESFLURANE (SUPRANE) 15 ML INHAL SOLN ONE (14:22)
[2021-01-28] MEDS ORDERED: SEVOFLURANE (ULTANE) 15 ML INHAL SOLN ONE (14:22)
[2021-01-28] MEDS ORDERED: ceFAZolin INJECTION 1,000 MG ONE (14:41)
[2021-01-28] MEDS ORDERED: APIX5TAB PO (14:54)
[2021-01-28] MEDS ORDERED: FURO-125 PO (14:54)
[2021-01-28] MEDS ORDERED: ATOR40TA70 PO (14:54)
[2021-01-28] MEDS ORDERED: ASPI-1238 PO (14:54)
[2021-01-28] MEDS ORDERED: LORA10TA7 PO (14:54)
--- NOTE | 2021-01-28 15:08 | Anesthesia-General Post-Op ---
General Patient Condition Mental Status/LOC: Same as Preop Cardiovascular: Satisfactory Nausea/Vomiting: Absent Respiratory: Satisfactory Pain: Controlled Complications: Absent Post Op Complications Complications None Follow Up Care/Instructions Patient Instructions None needed. Anesthesia/Patient Condition Patient Condition Patient is doing well, no complaints, stable vital signs, no apparent adverse anesthesia problems. No complications reported per nursing. AMBER PALOMARES CRNA Jan 28, 2021 15:08
--- NOTE | 2021-01-28 15:13 | Progress Note-Post Operative ---
Post-Operative Progess Note Surgeon (s)/Washtub Worker Helper (s) Surgeon GUERO NIELSEN MD Washtub Worker Helper n/a Pre-Operative Diagnosis Right Posterior Epistaxis Post-Operative Diagnosis same Post-Op Procedure Note Date of Procedure: Jan 28, 2021 Name of Procedure Performed: eNDOSCOPIC rEPAIR OF rIGHT pOSTERIOR ePistaxis Description & Findings Description and Findings: n/a Anesthesia Type get Estimated Blood Loss surgicel packing-right side of nose Packing none. Specimen(s) collected/removed none GUERO NIELSEN MD Jan 28, 2021 15:13
[2021-01-28] MEDS ORDERED: morphine INJ 10 MG/ML 1ML (SYR OR VIAL) IVP ONE (15:15)
[2021-01-28] MEDS ORDERED: PHENYLEPHRINE 0.5% NASAL SPR (NEO-SYNEPHRINE) REG PRN (15:15)
[2021-01-28] MEDS ORDERED: HYDROcodone/APAP 5 MG/325 MG (LORTAB) TAB PO PRN (15:15)
[2021-01-28] MEDS ORDERED: D5 1/2 NS W/KCL 20 MEQ/L 1,000 ML IV SCH (15:15)
[2021-01-28] MEDS ORDERED: ONDANSETRON 4 MG/2 ML (SDV) Z0FRAN IVP PRN (15:15)
[2021-01-28] MEDS ORDERED: ACHD5005 PO (15:24)
[2021-01-28] MEDS ORDERED: CEPH500T PO (15:24)
== END 2021-01-28 17:20 | disposition home or self-care (01) ==
LOC: SDC 12:57
PROVIDERS: ATTEND Otolaryngology Otolaryngology/Facial Plastic Surgery
DX: R04.0 Epistaxis (principal); E78.5 Hyperlipidemia, unspecified; I48.91 Unspecified atrial fibrillation; E66.9 Obesity, unspecified; Z20.822 Contact with and (suspected) exposure to COVID-19; Z79.01 Long term (current) use of anticoagulants; Z79.82 Long term (current) use of aspirin; Z68.34 Body mass index [BMI] 34.0-34.9, adult
CPT/HCPCS: 36415; 80048; 85025; 87636; 93005

== ENCOUNTER → 2021-02-02 | Day surgery (SDC) | payer BC ==
[~2021-02-02] VITALS: Ht 157 cm; Wt 85.4 kg
[~2021-02-02] MED LIST changes: +ACHD5005 PO; +APIX5TAB PO; +ASPI-1238 PO; +ATOR40TA70 PO; +FURO-125 PO; +LIDOCAINE 1% INJ 20 ML 20 ML VIAL INJ ONE; +LIDOCAINE 1% INJ 20 ML 20 ML VIAL ONE; +LORA10TA7 PO
[2021-02-02 12:49] VITALS: BP 134/78
--- NOTE | 2021-02-02 13:10 | Implantation of Loop Monitor ---
Implant of Loop Monitior IMPLANTATION OF LOOP MONITOR REPORT DATE OF PROCEDURE: 02/02/21 PREOP DIAGNOSIS: Paroxysmal atrial fibrillation POSTOP DIAGNOSIS: Paroxysmal atrial fibrillation PROCEDURE DETAILS: The patient is a 65 female with history of paroxysmal atrial fibrillation requiring long-term surveillance. Therefore implantable loop recorder was discussed and agreed with the patient. Informed consent was taken. All risks and complications were discussed at length. The patient was draped and prepped in the usual sterile fashion. Local anesthesia was lidocaine, which was given in the substernal area close to the 4th intercostal space. Loop monitor [employer] with serial number [id number] was implanted according to the protocol. Steri- Strips were placed at the end of the procedure. There were no complications and the patient tolerated the procedure well. ANESTHESIA: Local anesthesia with lidocaine. COMPLICATIONS: None CONTRAST/FLUOROSCOPY: None CONCLUSION: Successful implantation of loop monitor with no complication FINAL DIAGNOSIS: Paroxysmal atrial fibrillation Palpitation Coronary artery disease Hypertension HIRAL JACK MD Feb 02, 2021 13:10
[2021-02-02 13:52] VITALS: BP 131/81
== END ==
LOC: CATH 13:30
PROVIDERS: ATTEND Internal Medicine Cardiovascular Disease
DX: I48.0 Paroxysmal atrial fibrillation (principal); I34.0 Nonrheumatic mitral (valve) insufficiency; I10 Essential (primary) hypertension; I44.7 Left bundle-branch block, unspecified; I25.10 Atherosclerotic heart disease of native coronary artery without angina pectoris; Z79.01 Long term (current) use of anticoagulants; Z83.3 Family history of diabetes mellitus
CPT/HCPCS: 33285; C1764

== ENCOUNTER → 2021-04-20 | Outpatient (CLI) | payer BC ==
[~2021-04-20] MED LIST changes: -LIDOCAINE 1% INJ 20 ML 20 ML VIAL INJ ONE; -LIDOCAINE 1% INJ 20 ML 20 ML VIAL ONE
--- NOTE | 2021-04-20 09:48 | Diagnostic Imaging Report ---
INDICATION: Routine screening. COMPARISON: 04/19/2020 and 04/15/2019. TECHNIQUE: 2D and 3D bilateral screening mammography was performed with CAD. FINDINGS: Scattered fibroglandular densities are identified bilaterally. The parenchymal pattern is stable. No mass or malignant-appearing microcalcifications are identified. The axillae are unremarkable. IMPRESSION: No mammographic features suspicious for malignancy are identified. ACR BI-RADS Category 1: Negative. Result letter will be mailed to the patient. Note: At least 10% of breast cancer is not imaged by mammography. Dictated by: Dictated on workstation # [id number]
== END ==
LOC: RAD 07:30
PROVIDERS: ATTEND Family Medicine
DX: Z12.31 Encounter for screening mammogram for malignant neoplasm of breast (principal)
CPT/HCPCS: 77063; 77067

== ENCOUNTER → 2022-04-21 | Outpatient (CLI) | payer BC ==
--- NOTE | 2022-04-21 11:58 | Diagnostic Imaging Report ---
INDICATION: Routine screening. COMPARISON is made with prior mammograms 04/20/2021 and 04/19/2020. 2-D and 3-D bilateral screening mammography was performed with CAD. Scattered fibroglandular densities are identified bilaterally. Cardiac loop recorder overlies the medial left breast tissues. No mass or malignant-appearing microcalcifications are seen. Axillae are unremarkable. IMPRESSION: BI-RADS Category 1 No mammographic features suspicious for malignancy are identified. ACR BI-RADS Category 1: Negative. Result letter will be mailed to the patient. Note: At least 10% of breast cancer is not imaged by mammography. Dictated by: Dictated on workstation # [id number]
== END ==
LOC: RAD 07:30
PROVIDERS: ATTEND Family Medicine
DX: Z12.31 Encounter for screening mammogram for malignant neoplasm of breast (principal)
CPT/HCPCS: 77063; 77067

== ENCOUNTER → 2022-08-21 | Outpatient (CLI) | payer BC | LOC: CARD 08:11 | PROVIDERS: ATTEND Internal Medicine Cardiovascular Disease | DX: I11.9 Hypertensive heart disease without heart failure (principal); I34.0 Nonrheumatic mitral (valve) insufficiency; I25.10 Atherosclerotic heart disease of native coronary artery without angina pectoris | CPT/HCPCS: 93306 ==

== ENCOUNTER → 2023-04-23 | Outpatient (CLI) | payer BC ==
--- NOTE | 2023-04-23 11:22 | Diagnostic Imaging Report ---
INDICATION: Routine screening. COMPARISON: 04/21/2022 and 04/20/2021. TECHNIQUE: 2D and 3D bilateral screening mammography was performed with CAD. FINDINGS: Scattered fibroglandular densities are identified bilaterally. There is a circumscribed nodule in the upper right breast at posterior depth which appears to be slightly increased in size when compared with the prior mammograms. No other masses are identified. No malignant-appearing microcalcifications are identified. The axillae are unremarkable. IMPRESSION: Enlarging nodule in the upper right breast at posterior depth. Additional views are recommended for further evaluation. ACR BI-RADS Category 0: Incomplete. (Needs additional imaging evaluation). Result letter will be mailed to the patient. Note: At least 10% of breast cancer is not imaged by mammography. Dictated by: Dictated on workstation # [id number]
== END ==
LOC: RAD 07:42
PROVIDERS: ATTEND Family Medicine
DX: Z12.31 Encounter for screening mammogram for malignant neoplasm of breast (principal); N63.11 Unspecified lump in the right breast, upper outer quadrant
CPT/HCPCS: 77063; 77067

== ENCOUNTER → 2023-04-26 | Outpatient (CLI) | payer BC ==
--- NOTE | 2023-04-26 12:58 | Diagnostic Imaging Report ---
Indication: Abnormal mammogram with right breast nodule. This study is performed for further evaluation. Correlation is made with a diagnostic mammogram earlier the same day and a screening mammogram from 04/23/2023. Sonographic interrogation of the upper right breast was performed. There is a circumscribed hypoechoic nodule at the 12:00 location approximately 9 cm from the nipple measuring 4 mm x 5 mm. No internal vascularity is identified. This is consistent with either a very small cyst or a small fibroadenoma. This does correlate to the mammographic density. No other masses are identified. IMPRESSION: BI-RADS Category 2 Benign-appearing 4 to 5 mm nodule at the 12:00 location of the right breast corresponding with the mammographic abnormality. The patient may return to routine annual screening mammography. ACR BI-RADS Category 2: Benign findings. Result letter will be mailed to the patient. Note: At least 10% of breast cancer is not imaged by mammography. Dictated by: Dictated on workstation # [id number]
--- NOTE | 2023-04-26 12:59 | Diagnostic Imaging Report ---
Indication: Right breast nodule. Patient presents for additional views. Correlation is made with recent screening study from 04/23/2023. Unilateral right 2-D and 3-D diagnostic mammography was performed with CAD. This includes spot compression CC and ML views as well as conventional 90 lateral views. There is a persistent circumscribed nodule in the upper right breast posterior depth. This has fairly benign features. No malignant-appearing microcalcifications are seen. IMPRESSION: BI-RADS Category 0 Small circumscribed nodule at the 12:00 location of the right breast posterior depth. Further evaluation with ultrasound is recommended and will be performed today. ACR BI-RADS Category 0: Incomplete. (Needs additional imaging evaluation). Result letter will be mailed to the patient. Note: At least 10% of breast cancer is not imaged by mammography. Dictated by: Dictated on workstation # [id number]
== END ==
LOC: RAD 08:07
PROVIDERS: ATTEND Nurse Practitioner Family
DX: N63.15 Unspecified lump in the right breast, overlapping quadrants (principal)
CPT/HCPCS: 76642; 77065; G0279